=== PATIENT | male | born 1980 | race American Indian/Alaskan Native ===

== ENCOUNTER 2018-05-09 11:33 | Emergency (ER) | payer SELFPAY ==
[2018-05-09] MEDS ORDERED: KEPPRA 1,000 MG/NS 0.75% 100ML 1,000 MG/100 ML BAG IV ONE (11:35)
[2018-05-09] MEDS ORDERED: KEPPRA 1,000 MG in D5W 100 ML IV SCH (12:00)
--- NOTE | 2018-05-09 12:07 | Emergency Department Report ---
ED Seizure HPI - General Chief Complaint: Seizure Stated Complaint: SEIZURE Time Seen by Provider: 05/09/18 11:57 Source: patient, EMS Mode of arrival: Stretcher Limitations: No Limitations - History of Present Illness Initial Comments: Patient stopped taking his Dilantin about several months ago because he said he could not afford the medication. This afternoon patient had a witnessed seizure by the family. He was brought to the emergency room by EMS. MD Complaint: seizure -: Sudden Description of Episode: loss of consciousness, tonic-clonic movement Witnessed:: Yes Trauma: No Seizure History: known seizure disorder, history of non-compliance Place: home Possible Precipitating Event: none Associated Symptoms: denies other symptoms Treatments Prior to Arrival: none - Related Data Previous Rx's Medication Instructions Recorded Last Taken Type Phenytoin [Dilantin] 100 mg PO Q8HR #90 capsule 05/09/18 Unknown Rx Allergies Allergy/AdvReac Type Severity Reaction Status Date / Time No Known Allergies Allergy Unverified 05/09/18 11:52 ED Review of Systems ROS: Stated complaint: SEIZURE Other details as noted in HPI Comment: All other systems reviewed and negative Constitutional: denies: chills, fever Eyes: denies: eye pain, eye discharge ENT: denies: ear pain, throat pain Respiratory: denies: cough, shortness of breath Cardiovascular: denies: chest pain, palpitations, dyspnea on exertion Endocrine: no symptoms reported Gastrointestinal: denies: abdominal pain, nausea, vomiting, diarrhea Genitourinary: denies: urgency, dysuria, frequency Musculoskeletal: denies: back pain, joint swelling Skin: denies: rash, lesions Neurological: denies: headache, weakness Psychiatric: denies: anxiety, depression Hematological/Lymphatic: denies: easy bleeding, easy bruising ED Past Medical Hx - Past Medical History Previous Medical History?: Yes Hx Hypertension: Yes Hx Seizures: Yes - Surgical History Past Surgical History?: Yes Additional Surgical History: BACK SURGERY 2014 - Social History Smoking Status: Current Every Day Smoker Substance Use Type: Alcohol, Marijuana - Medications Home Medications: Home Medications Medication Instructions Recorded Confirmed Last Taken Type Phenytoin [Dilantin] 100 mg PO Q8HR #90 capsule 05/09/18 Unknown Rx ED Physical Exam - General Limitations: No Limitations General appearance: alert, in no apparent distress - Head Head exam: Present: atraumatic, normocephalic, normal inspection - Eye Eye exam: Present: normal appearance, PERRL, EOMI Pupils: Present: normal accommodation - ENT ENT exam: Present: normal exam, normal orophraynx, mucous membranes moist - Neck Neck exam: Present: normal inspection, full ROM. Absent: tenderness - Respiratory Respiratory exam: Present: normal lung sounds bilaterally. Absent: respiratory distress, wheezes, rales, rhonchi, stridor - Cardiovascular Cardiovascular Exam: Present: regular rate, normal rhythm, normal heart sounds - GI/Abdominal GI/Abdominal exam: Present: soft, normal bowel sounds. Absent: distended, tenderness, guarding, rebound, rigid - Extremities Exam Extremities exam: Present: normal inspection, full ROM, normal capillary refill - Back Exam Back exam: Present: normal inspection, full ROM. Absent: tenderness - Neurological Exam Neurological exam: Present: alert, oriented X3, CN II-XII intact - Psychiatric Psychiatric exam: Present: normal affect, normal mood - Skin Skin exam: Present: warm, dry, intact, normal color. Absent: rash ED Course Vital Signs 05/09/18 05/09/18 05/09/18 11:43 11:49 11:52 Temperature 98.2 F 98.2 F Pulse Rate 85 85 Respiratory 18 18 18 Rate Blood Pressure 99/62 Blood Pressure 99/62 [Left] O2 Sat by Pulse 97 97 97 Oximetry ED Medical Decision Making - Lab Data Result diagrams: 05/09/18 11:47 05/09/18 11:47 - Radiology Data Radiology results: report reviewed - Medical Decision Making Seizure disorder. Critical care attestation.: If time is entered above; I have spent that time in minutes in the direct care of this critically ill patient, excluding procedure time. ED Disposition Clinical Impression: Seizure disorder, Non compliance with medical treatment Disposition: DC-01 TO HOME OR SELFCARE Is pt being admited?: No Does the pt Need Aspirin: No Condition: Stable Instructions: Recurrent Seizures Adult (ED) Additional Instructions: Follow up with the Neurologist Dr Billings. Return to the ED if your condition worsens. Prescriptions: Phenytoin [Dilantin] 100 mg PO Q8HR #90 capsule Referrals: PRIMARY CAREMD [Primary Care Provider] - 3-5 Days MANUEL BILLINGS MD [Staff] - 3-5 Days Forms: Work/School Release Form(ED) Time of Disposition: 14:47
[2018-05-09 12:12] LABS: Basophils % (Auto) 0.6 % (0.0-1.8); Eosinophils # (Auto) 0.3 K/mm3 (0.0-0.4); Eosinophils % (Auto) 5.4 % (0.0-4.3); Hematocrit 43.9 % (35.5-45.6); Hemoglobin 14.4 gm/dl (11.8-15.2); Lymphocytes # (Auto) 1.9 K/mm3 (1.2-5.4); Mean Corpuscular HGB Conc 33 % (32-34); Mean Corpuscular Hemoglobin 30 pg (28-32); Mean Corpuscular Volume 93 fl (84-94); Monocytes # (Auto) 0.5 K/mm3 (0.0-0.8); Monocytes % (Auto) 7.7 % (0.0-7.3); Platelet Count 326 K/mm3 (140-440); Red Blood Count 4.75 M/mm3 (3.65-5.03); Red Cell Distribution Width 13.8 % (13.2-15.2)
[2018-05-09 12:26] LABS: BUN/Creatinine Ratio 12; Blood Urea Nitrogen 14 mg/dL (9-20); Calcium 9.4 mg/dL (8.4-10.2); Hemolysis Index 14
[2018-05-09 13:16] LABS: Alanine Aminotransferase 10 units/L (7-56); Albumin 4.4 g/dL (3.9-5)
[2018-05-09 13:22] LABS: Bilirubin,Direct < 0.2 mg/dL (0-0.2)
[2018-05-09 13:37] LABS: Bilirubin,Urine NEG (Negative); Blood,Urine MOD (Negative); Color,Urine Straw (Yellow); Urobilinogen,Urine < 2.0 mg/dL (<2.0)
[2018-05-09 13:49] LABS: Amphetamine Screen,Urine PRESUMPTIVE NEGATIVE; Benzodiazepines Screen,Urine PRESUMPTIVE NEGATIVE; Cocaine Screen,Urine PRESUMPTIVE NEGATIVE; Methadone Screen,Urine PRESUMPTIVE NEGATIVE; Opiate Screen,Urine PRESUMPTIVE NEGATIVE
[2018-05-09 14:06] LABS: Cannabinoid Screen,Urine PRESUMPTIVE POSITIVE
[2018-05-09] MEDS ORDERED: CEREBYX 1,000 MG.PE in NACL 0.9% 100 ML IV ONE (14:25)
[2018-05-09 15:48] VITALS: BP 147/94
== END 2018-05-09 15:50 | disposition home or self-care (01) ==
LOC: ED 11:33
DX: G40.909 Epilepsy, unspecified, not intractable, without status epilepticus (principal); I10 Essential (primary) hypertension; F17.200 Nicotine dependence, unspecified, uncomplicated; F12.10 Cannabis abuse, uncomplicated; Z91.14 Patient's other noncompliance with medication regimen
CPT/HCPCS: 36415; 80048; 80074; 80307; 81001; 85025; 96365; 96366; 99284; J1953; Q2009; 96367

== ENCOUNTER 2018-06-18 21:16 | Emergency (ER) | payer SELFPAY ==
[2018-06-18 21:55] LABS: Hematocrit 37.2 % (35.5-45.6); Hemoglobin 12.5 gm/dl (11.8-15.2); Mean Corpuscular HGB Conc 34 % (32-34); Mean Corpuscular Hemoglobin 31 pg (28-32); Mean Corpuscular Volume 91 fl (84-94); Platelet Count 263 K/mm3 (140-440); Red Blood Count 4.08 M/mm3 (3.65-5.03); Red Cell Distribution Width 13.3 % (13.2-15.2)
[2018-06-18 22:12] LABS: BUN/Creatinine Ratio 9; Blood Urea Nitrogen 11 mg/dL (9-20); Calcium 9.1 mg/dL (8.4-10.2); Hemolysis Index 18
--- NOTE | 2018-06-18 22:18 | Emergency Department Report ---
HPI - General Chief Complaint: Seizure Time Seen by Provider: 06/18/18 21:51 - HPI HPI: Room 22 The patient is a 38-year-old male presenting with a chief complaint of seizure. Proximal one hour prior to evaluation the patient had a generalized tonic- clonic seizure lasting approximately 3 minutes. Patient states his last seizure before today was approximately one month ago. The patient states he ran out of his Dilantin 4 days ago. Patient currently has no complaints related to the seizure but states he has noticed for the past 1.5 weeks that the left side of his abdomen feels "hard" when he palpates it Location: [See above] Duration: [See above] Quality: [See above] Severity: [See above] Modifying factors: [see above] Context: [see above] Mode of transportation: [not driving] ED Past Medical Hx - Past Medical History Previous Medical History?: Yes Hx Hypertension: Yes Hx Seizures: Yes - Surgical History Additional Surgical History: Cyst removed from back 2014 - Family History Family history: no significant - Social History Smoking Status: Current Every Day Smoker (1/2 pack per day) Substance Use Type: Marijuana - Medications Home Medications: Home Medications Medication Instructions Recorded Confirmed Last Taken Type Phenytoin [Dilantin] 100 mg PO Q8HR #90 capsule 06/18/18 Unknown Rx ED Review of Systems ROS: Stated complaint: SEIZURE Other details as noted in HPI Constitutional: no symptoms reported Eyes: denies: eye pain ENT: denies: throat pain Respiratory: no symptoms reported Cardiovascular: denies: chest pain Endocrine: no symptoms reported Gastrointestinal: other (induration in abdomen) Genitourinary: denies: dysuria Musculoskeletal: denies: back pain Neurological: denies: headache Physical Exam - Physical Exam Vital Signs: Vital Signs 06/18/18 06/18/18 21:24 21:29 Temperature 98.7 F Pulse Rate 95 H Respiratory 18 18 Rate Blood Pressure 145/91 O2 Sat by Pulse 99 Oximetry Physical Exam: GENERAL: The patient is well-developed well-nourished male lying on stretcher not appearing to be in acute distress. [] HEENT: Normocephalic. Atraumatic. Extraocular motions are intact. Patient has moist mucous membranes. NECK: Supple. No meningitic signs are noted. Trachea midline CHEST/LUNGS: Clear to auscultation. There is no respiratory distress noted. HEART/CARDIOVASCULAR: Regular. There is no tachycardia. There is no gallop rub or murmur. ABDOMEN: Abdomen is soft, nontender. Left periumbilical region soft tissue felt beneath the skin probably rectus abdominis muscle. Similar induration felt on the right side but it is asymmetric. Patient has normal bowel sounds. There is no abdominal distention. SKIN: There is no rash. There is no edema. There is no diaphoresis. NEURO: The patient is awake, alert, and oriented. The patient is cooperative. The patient has no focal neurologic deficits. The patient has normal speech. Cranial nerves II through XII grossly intact, no drift MUSCULOSKELETAL:There is no evidence of acute injury. ED Course Vital Signs 06/18/18 06/18/18 21:24 21:29 Temperature 98.7 F Pulse Rate 95 H Respiratory 18 18 Rate Blood Pressure 145/91 O2 Sat by Pulse 99 Oximetry ED Medical Decision Making - Lab Data Result diagrams: 06/18/18 21:42 06/18/18 21:42 Laboratory Tests 06/18/18 06/18/18 06/18/18 21:42 21:42 22:09 WBC 5.0 RBC 4.08 Hgb 12.5 Hct 37.2 MCV 91 MCH 31 MCHC 34 RDW 13.3 Plt Count 263 Sodium 142 Potassium 3.7 Chloride 103.7 Carbon Dioxide 24 Anion Gap 18 BUN 11 Creatinine 1.2 Estimated GFR > 60 BUN/Creatinine Ratio 9 Glucose 109 H Calcium 9.1 Phenytoin 1.0 L - Radiology Data Radiology results: report reviewed (CT abdomen and pelvis), image reviewed (CT abdomen and pelvis) - Medical Decision Making I discussed with the patient and family at bedside CT scan results. I explained how the radiologist cannot exclude a large polyp in the right side of the colon. The patient will be given a referral for gastroenterology for further evaluation in addition to a referral for neurologist. - Differential Diagnosis seizure, hernia, abdominal wall hematoma Critical care attestation.: If time is entered above; I have spent that time in minutes in the direct care of this critically ill patient, excluding procedure time. ED Disposition Clinical Impression: Seizure, Umbilical hernia Disposition: DC-01 TO HOME OR SELFCARE Is pt being admited?: No Does the pt Need Aspirin: No Condition: Stable Instructions: Epilepsy (ED) Additional Instructions: Return to the emergency department immediately should you develop worsening symptoms, fever, inability to tolerate food or liquid or any other concerns. Prescriptions: Phenytoin [Dilantin] 100 mg PO Q8HR #90 capsule Referrals: [facility] [Outside] - 3-5 Days ROSSY VOGEL MD [Staff Physician] - 3-5 Days (Dr Vogel is a neurologist. Please follow up with him for further evaluation) LATA PECK MD [Staff Physician] - 3-5 Days (Dr. Peck is a roof designer. Please follow-up with him for further evaluation) Time of Disposition: 23:33
[2018-06-18] MEDS ORDERED: CEREBYX 1,000 MG.PE in NACL 0.9% 100 ML IV ONE (23:16)
--- NOTE | 2018-06-18 23:19 | Cat Scan Report ---
FINAL REPORT PROCEDURE: CT ABDOMEN PELVIS WO CON TECHNIQUE: Computerized axial tomography of the abdomen and pelvis was performed without intravenous contrast. This study is performed without intravascular contrast material and its sensitivity for abdominal and pelvic pathology, including neoplasms, inflammation, abscess, free fluid, thrombosis, arterial dissection and infarction, is reduced compared with a contrast enhanced study. HISTORY: left periumbilical deep induration COMPARISON: No prior studies are available for comparison. FINDINGS: Lower Lung cortes: Small amount of dependent atelectasis visualized. Lung bases otherwise are clear. Upper Abdomen: The unenhanced images the liver are unremarkable. The gallbladder, the adrenal glands, the pancreas and the spleen are unremarkable. Kidneys, Ureters and Urinary bladder: No abnormalities are seen. Retroperitoneum: Abdominal aorta is unremarkable. Nonspecific subcentimeter lymph nodes are seen in the retroperitoneum. No pathologically enlarged lymph nodes are identified. Bowel: . No evidence of bowel obstruction or ascites. There is no free intraperitoneal gas. Normal-appearing appendix is seen in the right lower quadrant. Minimal umbilical hernia containing adipose tissue is visualized. No herniated loops of bowel are seen. Umbilicus otherwise is unremarkable. On coronal image 46 series 301 and axial image 86 series 2 there is a homogeneous density seen in the right side of the colon near the ileocecal valve. This does not appear to be fat density. I do not see evidence of a lipoma or fatty infiltration of the ileocecal valve. I cannot exclude a large polyp in the right side of the colon. This could be an artifact from stool in the colon. Consider follow-up barium enema for further evaluation. Normal-appearing appendix appears to be visualized in the right lower quadrant. Reproductive organs: Prostate gland does not appear to be significantly enlarged. Other: No acute bony abnormalities are seen. IMPRESSION: Minimal umbilical hernia visualized containing adipose tissue. No herniated loops of bowel are seen. The umbilicus otherwise is unremarkable. Soft tissue density seen in the right side of the colon near the ileocecal valve as described. I cannot exclude a polyp. Please see above comments. Consider follow-up barium enema for further evaluation.
[2018-06-18 23:54] VITALS: BP 137/89
== END 2018-06-19 00:09 | disposition home or self-care (01) ==
LOC: ED 21:16
DX: R56.9 Unspecified convulsions (principal); K42.9 Umbilical hernia without obstruction or gangrene; I10 Essential (primary) hypertension; F17.200 Nicotine dependence, unspecified, uncomplicated; F12.10 Cannabis abuse, uncomplicated
CPT/HCPCS: 36415; 74176; 80048; 80185; 85027; 96365; 99284; Q2009